=== PATIENT | female | born 1945 | race Caucasian/White ===

== ENCOUNTER 2017-09-28 08:28 | Emergency (ER) | payer MEDICARE ==
[~2017-09-28] VITALS: Ht 162.6 cm; Wt 50.0 kg
[~2017-09-28 08:28] MED LIST: ASPI-611 PO; METF500T PO; TRIA1TAB3 PO
[2017-09-28] MEDS ORDERED: HYDR-565 PO (09:17)
[2017-09-28] MEDS ORDERED: FAMC500T18 PO (09:17)
[2017-09-28] MEDS ORDERED: HYDROcodone/acetaminophen 10/325mg tab PO ONE ×2 (09:20→09:25)
[2017-09-28] MEDS ORDERED: ibuprofen tablet 400 MG TABLET PO ONE (09:20)
[2017-09-28 10:13] VITALS: BP 134/83
== END 2017-09-28 10:22 | disposition home or self-care (01) ==
LOC: ER 08:29
DX: B02.9 Zoster without complications (principal); E11.9 Type 2 diabetes mellitus without complications; Z79.82 Long term (current) use of aspirin
CPT/HCPCS: 99283